=== PATIENT | male | born 1965 | race Caucasian/White ===

== ENCOUNTER 2020-02-26 10:14 | Day surgery (SDC) | payer BC ==
[2020-02-25 11:12] VITALS: BMI 35.2
[~2020-02-26 10:14] MED LIST: LACTATED RINGERS 1,000 ML IV SCH; LIDOCAINE 1% (10MG/ML) FOR IV START INTRADERMA PRN
[2020-02-26 10:34] VITALS: TEMP 98.3
[2020-02-26] MEDS ORDERED: MIDAZOLAM 2 MG/2 ML VIAL ONE (12:08)
[2020-02-26] MEDS ORDERED: LIDOCAINE 1% INJ 10MG/ML (20 ML MDV) ONE (12:08)
[2020-02-26] MEDS ORDERED: PROPOFOL 10 MG/ML 20 ML VIAL IV ONE (12:08)
--- NOTE | 2020-02-26 13:00 | P.PCN ---
Date of Procedure: 02/26/20 Description of Procedure: BRIEF HISTORY: Patient is a 55-year-old male for outpatient colonoscopy for follow-up after positive Cologard. No prior colonoscopy. No family history of colon cancer. No change in bowel habits. PROCEDURE PERFORMED: Colonoscopy with polypectomy. PREOPERATIVE DIAGNOSIS: Positive Cologard, no prior colonoscopy. ESTIMATED BLOOD LOSS: Minimal. IV sedation per Anesthesia. PROCEDURE: After informed consent was obtained, the patient, was brought into the endoscopy unit. IV sedation was administered by Anesthesia under continuous monitoring. Digital rectal examination was normal. Initially the Olympus CF-190 flexible video colonoscope was then inserted in the rectum, gradually advanced into the cecum without any difficulty. Careful examination was performed as the scope was gradually being withdrawn. Ileocecal valve and the appendiceal orifice were visu alized and appeared normal. Prep was excellent. Mucosa of the cecum, ascending colon, transverse colon, descending colon, sigmoid colon, and rectum appeared normal. A few scattered diverticula noted in the sigmoid colon. 2 flat polyps measuring 5 and 6 mm in size removed from the ascending colon and rectum with cold snare polypectomy. 7 mm descending colon polyp located 40 cm from the anal verge removed with hot snare polypectomy. 2 polyps at the rectosigmoid measuring 12 mm and 5 mm in size removed with hot snare polypectomy located 20 cm from the anal verge . Retroflexion was performed in the rectum and no lesions were seen. The patient tolerated the procedure well. IMPRESSION: 2 polyps removed from ascending colon and rectum with cold snare polypectomy. 3 large polyps removed from the descending colon and rectosigmoid x 2 with hot snare polypectomy. Mild sigmoid diverticulosis. RECOMMENDATIONS: Findings of this examination were discussed with the patient and his girlfriend. Okay to resume diet. Okay to resume medications. Await pathology from polypectomies. Would recommend repeat colonoscopy in 3 years for high risk colon polyps, pending pathology from polypectomies.
[2020-02-26] MEDS ORDERED: LABETALOL SYRINGE 5 MG/ML IVP ONE (13:35)
[2020-02-26 14:47] VITALS: BP 169/100; PULSE 81; RESP 18
== END 2020-02-26 14:35 | disposition home or self-care (01) ==
LOC: ORWHC2ENDO 10:14
PROVIDERS: ATTEND Internal Medicine
DX: D12.4 Benign neoplasm of descending colon (principal); D12.7 Benign neoplasm of rectosigmoid junction; K63.5 Polyp of colon; K57.30 Diverticulosis of large intestine without perforation or abscess without bleeding; I10 Essential (primary) hypertension; F41.9 Anxiety disorder, unspecified; G47.33 Obstructive sleep apnea (adult) (pediatric); Z79.899 Other long term (current) drug therapy
CPT/HCPCS: 88305; 45385; J2250; J2001; J2704